=== PATIENT | male | born 1965 | race Caucasian/White ===

== ENCOUNTER 2020-04-27 11:21 | Emergency (ER) | payer BC | END 2020-04-27 12:56 | disposition home or self-care (01) | LOC: JVIRT 11:21 | DX: U07.1 COVID-19 (principal) | CPT/HCPCS: C9803; G2012-GT; U0003 ==

== ENCOUNTER 2020-06-08 12:05 | Emergency (ER) | payer BC | END 2020-06-08 12:46 | disposition home or self-care (01) | LOC: JVIRT 12:05 | DX: Z20.822 Contact with and (suspected) exposure to COVID-19 (principal) | CPT/HCPCS: C9803; G2251-GT; U0003 ==

== ENCOUNTER 2020-10-27 12:22 | Emergency (ER) | payer BC | END 2020-10-27 14:23 | disposition home or self-care (01) | LOC: JVIRT 12:22 | DX: Z20.822 Contact with and (suspected) exposure to COVID-19 (principal) | CPT/HCPCS: C9803; Q3014-GT; U0003; U0005 ==

== ENCOUNTER 2022-10-29 06:20 | Emergency (ER) | payer BC ==
[2022-10-29 06:31] VITALS: RESP 18; BMI 25.7
[2022-10-29 07:40] VITALS: BP 141/96; PULSE 73; TEMP 98.1
== END 2022-10-29 07:52 | disposition home or self-care (01) ==
LOC: FER 06:20
DX: R00.2 Palpitations (principal)
CPT/HCPCS: 93005; 99283-25